=== PATIENT | male | born 1995 | race Caucasian/White ===

== ENCOUNTER 2018-05-11 21:14 | Emergency (ER) | payer OTHER ==
--- NOTE | 2018-05-11 21:14 | ED Physician Documentation ---
PD HPI LOWER EXT INJURY - Stated complaint Stated Complaint: RIGHT ANKLE INJURY, DEFORMITY - History obtained from History obtained from: Patient - History of Present Illness PD HPI LOW EXT INJURY LOCATION: Right, Ankle, Foot Type of injury: Twist Where injury occurred: Park Timing - onset: How many hours ago (approximately 1 hour [employer]) Timing - details: Abrupt onset Pain level now: 6 Improved by: Rest, Immobilization Worsened by: Moving, Palpating Associated symptoms: Swelling. No: Weakness, Numbness Similar symptoms before: Has not had sx before Recently seen: Not recently seen - Additional information Additional information: tonight while playing volleyball, patient rolled his right foot and ankle, associate with a popping sound and sensation, as well as sudden onset of right ankle pain. Review of Systems Skin: reports: Reviewed and negative Musculoskeletal: reports: Joint pain, Joint swelling, Pain with weight bearing Neurologic: denies: Focal weakness, Numbness PD PAST MEDICAL HISTORY - Present Medications Home Medications: Ambulatory Orders Medication Instructions Recorded Confirmed Hydrocodone/Acetaminophen 1 - 2 each PO Q6H PRN #14 tablet 05/11/18 [Hydrocodon-Acetaminophen 5-325] - Allergies Allergies/Adverse Reactions: Allergies Allergy/AdvReac Type Severity Reaction Status Date / Time No Known Drug Allergies Allergy Verified 05/11/18 21:19 PD ED PE NORMAL - Vitals Vital signs reviewed: Yes - General General: Alert and oriented X 3, No acute distress, Well developed/nourished - Derm Derm: Normal color, Warm and dry - Neuro Neuro: No motor deficit, No sensory deficit PD ED PE EXPANDED - Extremities Extremities: Tenderness, Limited ROM, Swelling, Right ankle, Right foot Results - Vitals Vitals: Oxygen O2 Source Room air - Rads (name of study) right ankle xrays Radiology: Prelim report reviewed, See rad report right foot xrays Radiology: Prelim report reviewed, See rad report PD MEDICAL DECISION MAKING - ED course Complexity details: reviewed results, re-evaluated patient, considered differential, d/w patient Departure - Departure Disposition: 01 Home, Self Care Clinical Impression: Right ankle sprain Condition: Good Instructions: ED Crutch Walking, ED Sprain Ankle Follow-Up: GAVIOTA Meza [Provider Group] Prescriptions: Hydrocodone/Acetaminophen [Hydrocodon-Acetaminophen 5-325] 1 - 2 each PO Q6H PRN #14 tablet PRN Reason: pain Forms: Activity restrictions Discharge Date/Time: 05/11/18 23:15
[2018-05-11] MEDS ORDERED: HYDROcod/ACETAM 5/325 MG TABLET PO STA (21:32)
[2018-05-11] MEDS ORDERED: IBUPROFEN 600 MG TABLET PO STA (21:32)
--- NOTE | 2018-05-11 22:04 | XRAY Report ---
Reason: injury, pain, tenderness Procedure Date: 05/11/2018 Accession Number: [id number] / [id number] Procedure: XR - Ankle 3 View RT CPT Code: FULL RESULT: EXAM: RIGHT ANKLE RADIOGRAPHY EXAM DATE: 05/11/2018 09:23 PM. CLINICAL HISTORY: Twisting ankle injury. Pain. COMPARISON: None. TECHNIQUE: 3 views. FINDINGS: Bones: No ankle fracture or bone lesion. A tiny ossicle projects dorsal to the talar neck on the lateral view. Joints: No subluxation or mortise disruption. No convincing ankle joint effusion. Soft Tissues: Possible mild anterior swelling. IMPRESSION: 1. No ankle fracture or bony malalignment. 2. A nonspecific small ossicle adjacent to the dorsal talar neck. 3. Possible mild anterior swelling. RADIA
--- NOTE | 2018-05-11 22:07 | XRAY Report ---
Reason: pain, injury, tenderness Procedure Date: 05/11/2018 Accession Number: [id number] / [id number] Procedure: XR - Foot 3 View RT CPT Code: FULL RESULT: EXAM: RIGHT FOOT RADIOGRAPHY EXAM DATE: 05/11/2018 09:37 PM. CLINICAL HISTORY: Ankle/foot pain. Twisting injury. COMPARISON: Concurrent right ankle series today. TECHNIQUE: 3 views. FINDINGS: Bones: A 2 mm ossicle projects dorsal to the talar neck. No apparent bony defect of the talar neck. Bones otherwise unremarkable. Joints: No subluxation. Joint spaces are preserved. Soft Tissues: Equivocal mild swelling dorsal midfoot/hindfoot. IMPRESSION: 1. A nonspecific small ossicle projects dorsal to the talar neck. This could be posttraumatic of uncertain acuity. Correlate clinically. 2. Possible mild dorsal swelling. 3. Otherwise unremarkable. RADIA
[2018-05-11 23:12] VITALS: BP 132/74
== END 2018-05-11 23:15 | disposition home or self-care (01) ==
LOC: ED 21:14
DX: S93.401A Sprain of unspecified ligament of right ankle, initial encounter (principal); X50.1XXA Overexertion from prolonged static or awkward postures, initial encounter; Y93.68 Activity, volleyball (beach) (court); Y92.830 Public park as the place of occurrence of the external cause
CPT/HCPCS: 73610; 73630; 99283; A9270

== ENCOUNTER 2019-03-15 19:37 | Emergency (ER) | payer OTHER ==
[2019-03-15] MEDS ORDERED: KETOROLAC 60 MG/2 ML VIAL IM STA (20:00)
[2019-03-15] MEDS ORDERED: MORPHINE 10 MG/ML VIAL IVP STA (20:00)
[2019-03-15] MEDS ORDERED: LORazepam 2 MG/ML VIAL IVP STA (20:00)
--- NOTE | 2019-03-15 20:01 | ED Physician Documentation ---
PD HPI UPPER EXT INJURY - Stated complaint Stated Complaint: LEFT SHOULDER INJURY - Chief complaint Chief Complaint: Trauma Ext - History obtained from History obtained from: Patient - History of Present Illness Location: Left, Shoulder Type of injury: Fall (playing flag football, fell and landed left shoulder, with pain and deformity of the shoulder. Denies other injury.) Where injury occurred: Other (game field) Timing - onset: Today (shortly [employer]) Timing - duration: Hours (1) Timing - details: Abrupt onset, Still present Improved by: No: Rest Worsened by: Moving, Palpating Associated symptoms: No: Weakness, Numbness Contributing factors: Other (had snack about 2 hours ago; last meal several hours ago). No: Anticoagulated, Prior ortho surgery Similar symptoms before: Has not had sx before Review of Systems Constitutional: denies: Fever Nose: denies: Rhinorrhea / runny nose, Congestion Throat: denies: Sore throat Cardiac: denies: Chest pain / pressure, Palpitations Respiratory: denies: Dyspnea, Cough GI: denies: Abdominal Pain, Nausea, Vomiting Musculoskeletal: denies: Neck pain, Back pain Neurologic: denies: Focal weakness, Numbness, Altered mental status, Headache, Head injury PD PAST MEDICAL HISTORY - Past Medical History Cardiovascular: None Respiratory: None Neuro: None Endocrine/Autoimmune: None GI: None : None HEENT: None Psych: None Musculoskeletal: None Derm: None - Past Surgical History Past Surgical History: No - Present Medications Home Medications: Ambulatory Orders Medication Instructions Recorded Confirmed Hydrocodone/Acetaminophen 1 - 2 each PO Q6H PRN #14 tablet 05/11/18 [Hydrocodon-Acetaminophen 5-325] Hydrocodone/Acetaminophen [Falls 1 each PO Q6H PRN #15 tablet 03/15/19 5-325 Tablet] Naproxen 500 mg PO BID #20 tablet 03/15/19 - Allergies Allergies/Adverse Reactions: Allergies Allergy/AdvReac Type Severity Reaction Status Date / Time No Known Drug Allergies Allergy Unverified 03/15/19 19:39 - Social History Does the pt smoke?: No Smoking Status: Never smoker Does the pt drink ETOH?: No Does the pt have substance abuse?: No - Immunizations Immunizations are current?: Yes - POLST Patient has POLST: No PD ED PE NORMAL - Vitals Vital signs reviewed: Yes - General General: Alert and oriented X 3, Well developed/nourished, Other (appearing significant pain and guarding ROM of the left shoulder. Arm is held upward with forearm almost rested on his head. ) - HEENT HEENT: Atraumatic - Neck Neck: Supple, no meningeal sign, No bony TTP - Cardiac Cardiac: RRR, No murmur - Respiratory Respiratory: Clear bilaterally - Abdomen Abdomen: Soft, Non tender - Derm Derm: Normal color, Warm and dry - Extremities Extremities: Other (soft sulcus at shoulder area and fuillness inferoanterior c/w dislocation. ) - Neuro Neuro: Alert and oriented X 3, No motor deficit, No sensory deficit, Normal speech Eye Opening: Spontaneous Motor: Obeys Commands Verbal: Oriented GCS Score: 15 Results - Vitals Vitals: Oxygen O2 Source Room air - Rads (name of study) left shoulder Radiology: Prelim report reviewed (dislocation; Hill Sach deformity), EMP read contemporaneously (subcaracoid anterior dislocation), See rad report post reduction Radiology: Prelim report reviewed, EMP read contemporaneously (normal position), See rad report Procedures - Reduction Body part reduced: Left, Shoulder Fracture or dislocation: Dislocation Anesthesia: Conscious sedation, Dilaudid Shoulder reduction technique: Traction - counter tract Reduction aftercare: NV intact, Xray confirms reduction, Alignment improved, Sling, Patient tolerated well - Procedural sedation Sedation prep: Informed consent, Time out completed, Last meal (over 2 hours ago), PE performed, AHA 1 - healthy Sedation medications: dilaudid, propofol, given by MD Patient status during sedation: Responds to verbal, Vitals remained stable, Maintained airway, Recovered uneventfully. No: Respiratory depression, Hypoxia Sedation recovery: Recovered uneventfully PD MEDICAL DECISION MAKING - ED course Complexity details: reviewed results (dislocation with Hill Sachs defect/impaction), considered differential, d/w patient Departure - Departure Disposition: 01 Home, Self Care Clinical Impression: Shoulder dislocation Qualifiers: Encounter type: initial encounter Laterality: left Qualified Code(s): S43.005A - Unspecified dislocation of left shoulder joint, initial encounter Condition: Stable Record reviewed to determine appropriate education?: Yes Instructions: ED Dislocation Shoulder Redu Follow-Up: GAVIOTA Meza [Provider Group] Prescriptions: Hydrocodone/Acetaminophen [Falls 5-325 Tablet] 1 each PO Q6H PRN #15 tablet PRN Reason: Pain Naproxen 500 mg PO BID #20 tablet Comments: Your shoulder is relocated. There has to be a tear of the rotator cuff for to have dislocated. Sling for the shoulder with no heavy lifting with no lifting overhead reaching or push pole for about a month. Gentle range of motion of the shoulder so does not get stiff and do that several times a day with a just hanging down and small circles. Anti-inflammatories such as naproxen twice daily. Add Tylenol or hydrocodone as needed for pain. Follow-up with your primary care or more likely orthopedics in about 1 to 1-1/2 weeks for recheck to see how well it healing. Most of the time the rotator cuff will heal up adequately after this and not need surgical repair. However he will want to have it reassessed to see how well it is healing for stability and strength. Forms: Activity restrictions Discharge Date/Time: 03/15/19 22:00
[2019-03-15] MEDS ORDERED: HYDROmorphone 1 MG/ML CARPUJECT IVP STA (20:29)
[2019-03-15] MEDS ORDERED: PROPOFOL 200 MG/20 ML VIAL IVP STA (20:52)
--- NOTE | 2019-03-15 20:54 | XRAY Report ---
Reason: R/O Fx vs dislocation Procedure Date: 03/15/2019 Accession Number: [id number] / [id number] Procedure: XR - Shoulder 2 View LT CPT Code: FULL RESULT: EXAM: LEFT SHOULDER RADIOGRAPHY EXAM DATE: 03/15/2019 08:19 PM. CLINICAL HISTORY: R/O Fx vs dislocation. COMPARISON: None. TECHNIQUE: 3 views. FINDINGS: Bones: Anterior subcoracoid dislocation. The AC joint is intact. Soft tissues: The visualized hemithorax is unremarkable. Soft tissue swelling. IMPRESSION: Anterior subcoracoid dislocation RADIA
[2019-03-15 21:31] VITALS: BP 135/63
--- NOTE | 2019-03-15 21:41 | XRAY Report ---
Reason: post reduction Procedure Date: 03/15/2019 Accession Number: [id number] / [id number] Procedure: XR - Shoulder 2 View LT CPT Code: FULL RESULT: EXAM: LEFT SHOULDER RADIOGRAPHY EXAM DATE: 03/15/2019 09:26 PM. CLINICAL HISTORY: Post reduction. COMPARISON: SHOULDER 2 VIEW LT 03/15/2019 8:04 PM. TECHNIQUE: 2 views. FINDINGS: Bones: Contour deformity of the superiorly lateral left humeral head consistent with a Hill Sachs cortical defect. Joints: Interval reduction of left glenohumeral joint dislocation now in anatomic alignment. Soft tissues: The visualized hemithorax is unremarkable. No soft tissue swelling. IMPRESSION: 1. Interval reduction of left glenohumeral joint dislocation now in anatomic alignment. 2. Left humeral head Hill-Sachs cortical defect. RADIA
[2019-03-15] MEDS ORDERED: HYDROcod/ACET 5/325 Prepack 4 PO STA (21:43)
== END 2019-03-15 22:00 | disposition home or self-care (01) ==
LOC: EDUNIT# → ED 19:37
DX: S43.085A Other dislocation of left shoulder joint, initial encounter (principal); W19.XXXA Unspecified fall, initial encounter; Y93.62 Activity, american flag or touch football; Y92.321 Football field as the place of occurrence of the external cause
CPT/HCPCS: 23650; 73030; 96374; 99283; 99285; J1170; J2060; 94770